=== PATIENT | female | born 1955 | race African-American/Black ===

== ENCOUNTER → 2017-06-24 | Outpatient (CLI) | payer MEDICARE, MEDICAID ==
[~2017-06-24] MED LIST: BENA40TA3 PO; DICL75TA5 PO; HYDR-523 PO; HYDR25TA PO; NITR100C2 PO; OXYB5TAB11 PO; ROSU10TA PO; WARF5TAB73 PO
== END | disposition home or self-care (01) ==
LOC: MRI 08:10
PROVIDERS: ATTEND Neurological Surgery
DX: M50.223 Other cervical disc displacement at C6-C7 level (principal); M50.222 Other cervical disc displacement at C5-C6 level; M50.221 Other cervical disc displacement at C4-C5 level; M47.896 Other spondylosis, lumbar region; M51.36 Other intervertebral disc degeneration, lumbar region; M48.02 Spinal stenosis, cervical region; M48.06 Spinal stenosis, lumbar region; R26.2 Difficulty in walking, not elsewhere classified; M85.80 Other specified disorders of bone density and structure, unspecified site
CPT/HCPCS: 72114; 72141; 72146; 72148